=== PATIENT | female | born 1985 | race Caucasian/White ===

== ENCOUNTER → 2020-05-06 11:24 | Outpatient (BNVA) | payer MEDICAID, SELFPAY | PROVIDERS: Family Provider Obstetrics & Gynecology; PCP Nurse Practitioner Family; Visit Provider Nurse Practitioner Family | DX: Z20.828 Contact with and (suspected) exposure to other viral communicable diseases (principal); J22 Unspecified acute lower respiratory infection; J32.9 Chronic sinusitis, unspecified | CPT/HCPCS: 87635 ==

== ENCOUNTER → 2024-01-09 10:52 | Outpatient (BNVA) | payer MEDICAID, SELFPAY | PROVIDERS: PCP Nurse Practitioner Family; Visit Provider Nurse Practitioner Family | DX: Z79.899 Other long term (current) drug therapy (principal); M79.7 Fibromyalgia; M25.511 Pain in right shoulder; M25.512 Pain in left shoulder; Z13.6 Encounter for screening for cardiovascular disorders; M06.9 Rheumatoid arthritis, unspecified | CPT/HCPCS: 73030; 80053; 80061; 81003; 83036; 84439; 84443; 85025; 86038; 86160; 86162; 86200; 86235; 86255; 86376; 86431; 87086 ==